=== PATIENT | female | born 1985 | race Caucasian/White ===

== ENCOUNTER 2024-06-08 20:15 | Emergency (ER) | payer OTHER, SELFPAY ==
[2024-06-08 20:21] VITALS: BP 152/91; PULSE 87; RESP 18; TEMP 36.9; O2SAT 98; BMI 22.0
--- NOTE | 2024-06-08 21:13 | ED.ABDPAIN ---
HPI - Abdominal Pain General Time Seen by Provider: 21:05 Date Seen: 06/08/24 Chief Complaint: Abdominal Pain Stated Complaint: Lower R abdominal pain Time Seen by Provider: 06/08/24 21:04 Source: patient and family Mode of arrival: ambulatory Limitations: no limitations History of Present Illness HPI narrative: Patient is a 38-year-old female who presents to the emergency room for evaluation of abdominal pain. Patient complains of right side abdominal pain that started on Friday. Patient reports pain is a constant burning sensation that starts on the right side of her abdomen and radiates across her entire abdomen. Patient states she has tried taking Tums and Prilosec at home with no improvement of her symptoms. Patient reports severe pain so came in for further evaluation. Patient reports nausea but denies any fever, chills, vomiting, diarrhea, constipation. Patient denies any chest pain, shortness of breath, cough or cold-like symptoms. Denies any dysuria, hematuria, vaginal bleeding, vaginal discharge, pelvic pain. Patient reports history of 2 prior sections in the past. Patient denies any history of similar symptoms in the past. Patient reports tobacco use, denies any alcohol use. No other complaints. Related Data Previous Rx's ?Medication ?Instructions ?Recorded hydrocortisone 2.5 % topical cream 1 applic topical BID PRN rash #30 11/05/22 grams ketoconazole 2 % topical cream 1 applic topical BID #30 grams 11/05/22 spironolactone 50 mg tablet 50 mg PO BID #60 tabs 11/05/22 Allergies Allergy/AdvReac Type Severity Reaction Status Date / Time No Known Drug Allergies Allergy Verified 06/08/24 22:58 Review of Systems Const Denies: fever ENMT Denies: throat pain Cardio Denies: chest pain or shortness of breath with exertion Resp Denies: shortness of breath GI Reports: abdominal pain and nausea; Denies: vomiting Denies: painful urination or pelvic pain Musculo Reports: back pain Integ/Breast Denies: rash Neuro Denies: headache PFSH PFSH Social History Smoking Status: Never smoker How often do you have a drink containing alcohol: monthly or less AUDIT-C Alcohol total score: 1 Non-prescribed substance use: denies use service: No Exam Narrative: Exam Narrative: General: Afebrile, severe distress 2/2 to pain HENT: MMM, no oropharyngeal lesions Eyes: PERRL, normal sclerae Neck: non-tender, supple Cardio: regular rate. Regular rhythm. Extremities well perfused Resp: Normal work of breathing, clear breath sounds Chest/Back: no visual signs of trauma, no CVA tenderness Abdomen: soft, non-distended, +TTP right side abdomen - mostly in right upper abdomen and right mid abdomen with no rebound, no guarding, no peritoneal signs Neuro: alert and fully oriented. CN II-XII grossly intact. Grossly normal strength and sensation in all extremities. MSK: no deformities. Integumentary/Skin: no rash visualized, normal color Psych: normal affect, normal behavior Const: Vital Signs, click to edit/add: Vital Signs - 24 hr 06/08/24 20:21 Temperature 98.4 F Pulse Rate [Right Pulse Oximeter] 87 Respiratory Rate 18 Blood Pressure [Ri ght Upper Arm] 152/91 H Pulse Oximetry 98 Oxygen Delivery Me thod Room Air Course Vital Signs Vital signs: Initial Vital Signs Temperature 98.4 F 06/08/24 20:21 Temperature Source Temporal Artery Scan 06/08/24 20:21 Pulse Rate 87 06/08/24 20:21 Pulse Rhythm Regular 06/08/24 20:21 Pulse Strength 3+ Normal 06/08/24 20:21 Respiratory Rate 18 06/08/24 20:21 Blood Pressure 152/91 H 06/08/24 20:21 Blood Pressure Mean 111 H 06/08/24 20:21 Blood Pressure Position Sitting 06/08/24 20:21 Pulse Oximetry 98 06/08/24 20:21 Oxygen Delivery Method Room Air 06/08/24 20:21 Vital Signs Temperature 98.4 F 06/08/24 20:21 Pulse Rate 87 06/08/24 20:21 Respiratory Rate 18 06/08/24 20:21 Blood Pressure 152/91 H 06/08/24 20:21 Pulse Oximetry 98 06/08/24 20:21 Oxygen Delivery Method Room Air 06/08/24 20:21 Temperature 98.4 F 06/08/24 20:21 Pulse Rate 87 06/08/24 20:21 Respiratory Rate 18 06/08/24 20:21 Blood Pressure 152/91 H 06/08/24 20:21 Pulse Oximetry 98 06/08/24 20:21 Oxygen Delivery Method Room Air 06/08/24 20:21 Medications Administered Medications: Discontinued Medications Generic Name Dose Route Start Last Admin Trade Name Goyo PRN Reason Stop Dose Admin Hydromorphone HCl 0.5 mg 06/08/24 21:11 06/08/24 21:20 Hydromorphone 0.5 Mg/0.5 Ml Inj IVP 06/08/24 21:12 0.5 mg ONCE ONE Administration Hydromorphone HCl 0.5 mg 06/08/24 21:54 06/08/24 22:04 Hydromorphone 0.5 Mg/0.5 Ml Inj IVP 06/08/24 21:55 0.5 mg ONCE ONE Administration Hydromorphone HCl 0.5 mg 06/08/24 23:23 06/08/24 23:30 Hydromorphone 0.5 Mg/0.5 Ml Inj IVP 06/08/24 23:24 Not Given ONCE ONE Sodium Chloride 1,000 mls @ 500 mls/hr 06/08/24 21:15 06/08/24 22:03 0.9 % Sodium Chloride 1000 Ml IV 06/08/24 23:14 Infused .Q2H CLARA Infusion Ketorolac Tromethamine 15 mg 06/08/24 21:54 06/08/24 22:05 Ketorolac 15 Mg/Ml Inj IVP 06/08/24 21:55 15 mg ONCE ONE Administration Lorazepam 0.5 mg 06/08/24 23:38 06/08/24 23:44 Lorazepam 0.5 Mg Tablet PO 06/08/24 23:39 0.5 mg ONCE ONE Administration Ondansetron HCl 4 mg 06/08/24 21:11 06/08/24 21:22 Ondansetron 2 Mg/Ml Inj IVP 06/08/24 21:12 4 mg ONCE ONE Administration Ondansetron HCl 4 mg 06/08/24 23:23 06/08/24 23:32 Ondansetron 2 Mg/Ml Inj IVP 06/08/24 23:24 4 mg ONCE ONE Administration MDM - Abdominal Pain MDM Narrative Medical decision making narrative: Patient is a 38-year-old female who presents to the emergency room for evaluation of abdominal pain. Upon arrival patient is nontoxic appearing, afebrile, moderate distress. Patient is slightly hypertensive upon arrival 152/91, heart rate 87, oxygen 98% on room air. On examination patient with tenderness to palpation in her epigastric region, right upper quadrant, and right lower quadrant with no peritoneal signs. Differential diagnosis includes but is not limited to gastritis versus gastroenteritis versus peptic ulcer disease versus pancreatitis versus cholecystitis versus biliary colic versus appendicitis versus pyelonephritis versus nephrolithiasis versus cystitis among others. Upon arrival patient was treated with 1 L IV fluid bolus, IV Zofran, IV Dilaudid, toradol, comprehensive labs performed. I reviewed comprehensive labs which are remarkable for wbc 8.34, hemoglobin 12.6, no acute metabolic or electrolyte abnormality, no transaminitis, normal lipase. UA with negative test, no evidence of blood or infection. (low suspicious for cystitis, kidney infection/stone). Patient with ongoing severe pain requiring multiple doses of IV pain medications. CT imaging performed. I personally reviewed and interpreted CT imaging which demonstrates moderate to large amount of stool with fecalized material in the terminal ileum suggestive of stasis/constipation. Patient with no signs of acute intra-abdominal infection. The patient does have small corpus luteum cyst in the right ovary. Patient denies any pelvic pain. Consider further evaluation with ultrasound however given patient no pelvic pain, small cysts, low suspicious ovarian torsion or doses are etiology of pain. Patient's symptoms most likely secondary to stasis/constipation - given location of symptoms, laboratory testing, physical exam, and CT imaging. I discussed results with patient. Plan for discharge home with supportive care with oral hydration, high-fiber diet, MiraLax, stool softeners, close outpatient follow-up. Patient is agreeable plan. Strict return precautions discussed. Patient understands and agrees with the plan. Medical Records Attestation: I reviewed the patient's medical records. Lab Data Attestation: I reviewed the patient's lab results. Labs: Lab Results 06/08/24 Range/Units 21:20 WBC 8.34 (4.50-11.00) K/uL RBC 4.16 (4.00-5.20) m/uL Hgb 12.6 (12.0-16.0) gm/dL Hct 37.8 (33.0-51.0) % MCV 91 (80-100) fL MCH 30 (26-34) pg MCHC 33 (32-36) gm/dL RDW Coeff of Andrea 12.8 (11.5-15.5) % Plt Count 258 (140-440) K/uL Neut % (Auto) 56.2 (42.0-72.0) % Lymph % (Auto) 35.1 (20-44) % Coal % (Auto) 7.1 (0.0-11.0) % Eos % (Auto) 1.2 (0.0-7.0) % Baso % (Auto) 0.4 (0.0-3.0) % Neut # (Auto) 4.69 (1.7-7.0) K/uL Lymph # (Auto) 2.93 H (0.90-2.90) K/uL Coal # (Auto) 0.60 (0.00-0.90) K/UL Eos # (Auto) 0.10 (0.00-0.50) K/uL Baso # (Auto) 0.03 (0.00-0.30) K/uL Abs Immat Gran (auto) 0.00 (0.00-0.30) K/uL Imm/Tot Granulo (auto) 0.0 % Sodium 138 (135-149) mmol/L Potassium 3.7 (3.6-5.1) mmol/L Chloride 105 (96-114) mmol/L Carbon Dioxide 27 (20-32) mmol/L Anion Gap 6 L (7-15) mEq/L BUN 9 (5-24) mg/dL Creatinine 0.8 (0.5-1.5) mg/dL Estimated Creat Clear 83.14 Estimated GFR 97 ml/min Glucose 79 (60-115) mg/dL Calcium 9.7 (8.4-10.6) mg/dL Total Bilirubin 0.3 (0.1-1.5) mg/dL AST 24 (12-35) U/L ALT 11 (4-35) U/L Alkaline Phosphatase 50 (40-150) U/L Total Protein 6.9 (6.0-8.3) g/dL Albumin 4.6 (3.3-5.0) g/dL Lipase 77 (23-300) U/L HCG, Qual Negative (Negative) Urine Color Yellow (Yellow) Urine Appearance Clear (Clear) Urine pH 7.5 (5.0-8.5) Ur Specific [place] 1.015 (1.000-1.030) Urine Protein Negative (Negative) Urine Glucose (UA) Negative (Negative) Urine Ketones Negative (Negative) Urine Blood Negative (Negative) Urine Nitrite Negative (Negative) Urine Bilirubin Negative (Negative) Urine Urobilinogen 0.2 (0.2-1.0) Ur Leukocyte Esterase Negative (Negative) Urine RBC 0-2 (0-2) Urine WBC 0-2 (0-5) Ur Squamous Epith Cells Few (None-Few) Amorphous Sediment Few A (None) Urine Bacteria None (None) Imaging Data CT scan - abdomen: Attestation: I have reviewed the pertinent imaging results. Discharge Plan Discharge Clinical Impression: Abdominal pain, Constipation Patient Disposition: Home, Self-Care Condition: Stable Instructions: Constipation (ED), Abdominal Pain (ED) Additional Instructions: Please follow-up with your primary care provider in the next 3-5 days for further evaluation and follow-up. Please call to schedule appointment. Please drink plenty of fluids and eat a diet high in fiber. Please take [id number] laxatives (Miralax) and stool softeners (ex: senna) twice daily until you start to help bowel movements. Once you start to have bowel movements please take once daily at bedtime. Please return to the emergency department if you develop high fever, severe pain, persistent vomiting, or any worsening symptoms. It was a pleasure taking care of you today. We hope you feel better soon. Prescriptions: No Action hydrocortisone 2.5 % cream 1 applic topical BID PRN (Reason: rash) Qty: 30 1RF ketoconazole 2 % cream 1 applic topical BID Qty: 30 2RF spironolactone 50 mg tablet 50 mg PO BID Qty: 60 9RF Follow Up/Referrals: Provider,Not a Local [Primary Care Provider] - Stand Alone Forms: [employer] Info Instructions
[2024-06-08] MEDS: HYDROmorphone 0.5 mg/0.5 ml inj IVP ×2 (21:20→22:04)
[2024-06-08] MEDS: ONDANSETRON 2 MG/ML inj 4 MG IVP ×2 (21:22→23:32)
[2024-06-08] MEDS: 0.9 % SODIUM CHLORIDE 1000 ml 1,000 ML 500 ML IV (21:23)
[2024-06-08 21:27] LABS: Basophils Absolute Auto 0.03 K/uL (0.00-0.30); Basophils Percent Auto 0.4 % (0.0-3.0); Eosinophils Percent Auto 1.2 % (0.0-7.0); Hematocrit 37.8 % (33.0-51.0); Hemoglobin* 12.6 gm/dL (12.0-16.0); Lymphocytes Absolute Auto 2.93 K/uL (0.90-2.90); Lymphocytes Percent Auto 35.1 % (20-44); Mean Corpuscular HGB Conc 33 gm/dL (32-36); Mean Corpuscular Hemoglobin 30 pg (26-34); Mean Corpuscular Volume 91 fL (80-100); Monocytes Percent Auto 7.1 % (0.0-11.0); Neutrophils Absolute Auto 4.69 K/uL (1.7-7.0); Neutrophils Percent Auto 56.2 % (42.0-72.0); Platelet Count* 258 K/uL (140-440); RDW Coefficient of Variation % 12.8 % (11.5-15.5); Red Blood Count 4.16 m/uL (4.00-5.20); White Blood Count* 8.34 K/uL (4.50-11.00)
[2024-06-08 21:28] LABS: Appearance Urine Clear (Clear); Bilirubin Urine Negative (Negative); Blood Urine Negative (Negative); Color Urine Yellow (Yellow); Glucose Urine Negative (Negative); Ketones Urine Negative (Negative); Leukocyte Esterase Urine Negative (Negative); Nitrite Urine Negative (Negative); Protein Urine Negative (Negative); Specific Gravity Urine 1.015 (1.000-1.030); Urobilinogen Urine 0.2 (0.2-1.0); pH Urine 7.5 (5.0-8.5)
[2024-06-08 21:29] LABS: Slide Review Reflex No
[2024-06-08 21:36] LABS: Albumin* 4.6 g/dL (3.3-5.0); Chloride* 105 mmol/L (96-114); Sodium* 138 mmol/L (135-149)
[2024-06-08 21:37] LABS: Potassium* 3.7 mmol/L (3.6-5.1)
[2024-06-08 21:38] LABS: Amorphous Sediment Urine Few; RBC Urine 0-2 (0-2); Squamous Epithelial Cell Urine Few (None-Few); WBC Urine 0-2 (0-5)
[2024-06-08 21:39] LABS: Alkaline Phosphatase* 50 U/L (40-150); Anion Gap 6 mEq/L (7-15); Aspartate Amino Transferase* 24 U/L (12-35); Bilirubin Total* 0.3 mg/dL (0.1-1.5); Blood Urea Nitrogen* 9 mg/dL (5-24); Calcium* 9.7 mg/dL (8.4-10.6); Carbon Dioxide* 27 mmol/L (20-32); Creatinine* 0.8 mg/dL (0.5-1.5); Est. Creatinine Clearance* 83.14; Estimated Glomerular Filt Rate 97 ml/min; Glucose* 79 mg/dL (60-115); Lipase* 77 U/L (23-300); Total Protein* 6.9 g/dL (6.0-8.3)
[2024-06-08 21:40] LABS: Alanine Aminotransferase* 11 U/L (4-35)
--- NOTE | 2024-06-08 21:54 | CRLHL7_ITS ---
For Patients: As a result of the Century Cures Act, medical imaging exams and procedure reports are released immediately into your electronic medical record. You may view this report before your referring provider. If you have questions, please contact your health care provider. INDICATION: Right side abdominal pain that extends across lower abdomen and sometimes right side of back. TECHNIQUE: CT abdomen and pelvis acquired with 64 cc Isovue 370 IV contrast. Coronal and sagittal reconstructions. COMPARISON: CT of the abdomen and pelvis 10/30/2010. FINDINGS: Liver: Normal in size and attenuation. No focal liver lesions. Hepatic and portal veins are patent. Gallbladder and bile ducts: Unremarkable. No biliary dilation. Spleen: Unremarkable. Normal in size. No masses. Pancreas: Unremarkable. No mass or inflammation. Adrenal glands: Unremarkable. No nodules. Kidneys: Symmetric enhancement. No hydronephrosis or ureteral dilation. No obstructing urinary calculi identified. No bladder wall thickening. Reproductive structures: Uterus is unremarkable. There is a 1.3 cm rim enhancing cystic lesion in the right ovary which likely represents a corpus luteum (series 2, image 104). GI tract/Peritoneum: Moderate to large amount of stool throughout the colon. The terminal ileum is mildly distended with fecalized material suggesting stasis. No evidence of small bowel obstruction. The appendix is not identified. Trace free fluid in the pelvic cul-de-sac is likely physiologic. No intraperitoneal free air. Vasculature: Abdominal aorta is normal in caliber. Mesenteric arteries are patent. Lymph nodes: No lymphadenopathy. Abdominal Wall: Unremarkable. Bones: Unremarkable. Lower chest: Unremarkable. IMPRESSION: 1. Moderate to large amount of stool, with fecalized material in the terminal ileum suggesting stasis/constipation. The appendix is not identified, however there are no secondary signs of inflammation in the right lower quadrant. 2. Small corpus luteal cyst in the right ovary. 3. No other acute findings in the abdomen or pelvis. Please note that all CT scans at this facility use dose modulation, iterative reconstruction, and/or weight-based dosing when appropriate to reduce radiation dose to as low as reasonably achievable. Dictated by Preethi Singer MD @ 06/08/2024 11:22:32 PM (Electronically Signed)
[2024-06-08] MEDS: KETOROLAC 15 MG/ML inj IVP (22:05)
[2024-06-08 22:45] LABS: HCG Qualitative Serum* Negative (Negative)
[2024-06-08] MEDS: LORazepam 0.5 MG TABLET PO (23:44)
== END 2024-06-08 23:50 | disposition home or self-care (01) ==
PROVIDERS: Emergency Provider Emergency Medicine
DX: R10.31 Right lower quadrant pain (principal); K59.00 Constipation, unspecified
CPT/HCPCS: 36415; 74177; 80053; 81001; 83690; 84703; 85025; 96374; 96375; 99283; 99284; 99285; A9270; J1170; J1885; J2405; J7030; Q9967